=== PATIENT | male | born 2000 | race Caucasian/White ===

== ENCOUNTER 2025-03-23 03:30 | Emergency (ER) | payer SELFPAY ==
[~2025-03-23] VITALS: Ht 170.2 cm; Wt 79.0 kg
[2025-03-23 03:34] VITALS: O2SAT 99
[2025-03-23] MEDS: KETOROLAC 15MG/ML VIAL IM ONE (04:09)
[2025-03-23] MEDS: LIDOCAINE 5% PATCH TOP SCH (04:10)
[2025-03-23] MEDS ORDERED: LIDO-53 TP (05:29)
[2025-03-23] MEDS ORDERED: NAPR-1176 MT (05:29)
[2025-03-23 05:38] VITALS: BP 147/95; PULSE 99; RESP 16; TEMP 36.9; O2SAT 100
== END 2025-03-23 05:40 | disposition home or self-care (01) ==
LOC: ER 03:48
DX: R07.81 Pleurodynia (principal); R68.83 Chills (without fever); Z79.1 Long term (current) use of non-steroidal anti-inflammatories (NSAID); Y04.0XXA Assault by unarmed brawl or fight, initial encounter; Y93.89 Activity, other specified; Y92.89 Other specified places as the place of occurrence of the external cause; Y99.8 Other external cause status
CPT/HCPCS: 99283; 71111; 96372; J1885